=== PATIENT | female | born 1970 | race Caucasian/White ===

== ENCOUNTER 2023-04-22 23:24 | Observation (INO) | payer BC ==
[~2023-04-22] VITALS: Ht 175.3 cm; Wt 93.6 kg
[2023-04-22 23:43] LABS: BASOPHILS # (AUTO) 0.1 X10'3 (0-0.2); BASOPHILS % (AUTO) 0.5 % (0-1); EOSINOPHILS # (AUTO) 0.1 X10'3 (0-0.9); EOSINOPHILS % (AUTO) 1.3 % (0-6); HEMATOCRIT 40.7 % (35.0-45.0); HEMOGLOBIN 13.5 g/dl (12.0-16.0); LYMPHOCYTES # (AUTO) 3.7 X10'3 (1.1-4.8); LYMPHOCYTES % (AUTO) 39.6 % (21-51); MEAN CORPUSCULAR HEMOGLOBIN 28.9 PG (27.0-31.0); MEAN CORPUSCULAR HGB CONC 33.2 g/dL (33.0-36.5); MEAN PLATELET VOLUME 8.2 FL (7.4-10.4); MONOCYTES # (AUTO) 0.7 X10'3 (0-0.9); NEUTROPHILS # (AUTO) 4.8 X10'3 (1.8-7.7); NEUTROPHILS % (AUTO) 51.6 % (42-75); PLATELET COUNT 222 X10'3 (140-440); RED BLOOD COUNT 4.68 X10'6 (4.20-5.60); RED CELL DISTRIBUTION WIDTH 13.7 % (11.5-14.5); WHITE BLOOD COUNT 9.4 X10'3 (4.5-11.0)
[2023-04-23] VITALS (11 sets, daily range): BP systolic 136–164; BP diastolic 68–91; PULSE 64–101; RESP 12–16; TEMP 97.9; O2SAT 98–100
[2023-04-23 00:02] LABS: ALANINE AMINOTRANSFERASE 32 U/L (12-78); ALBUMIN 3.9 G/DL (3.4-5.0); ALBUMIN/GLOBULIN RATIO 0.9 (1.1-1.5); ALKALINE PHOSPHATASE 54 IU/L (46-116); ANION GAP 9 (8-16); ASPARTATE AMINO TRANSFERASE 20 U/L (10-37); BILIRUBIN,TOTAL 0.5 MG/DL (0.1-1.0); BLOOD UREA NITROGEN 10 MG/DL (7-18); CALCIUM 9.7 MG/DL (8.5-10.1); CHLORIDE 103 MMOL/L (99-107); CREATININE 0.83 MG/DL (0.40-0.90); GLUCOSE 132 MG/DL (70-104); POTASSIUM 3.4 MMOL/L (3.5-5.1); SODIUM 139 MMOL/L (135-145); TOTAL CARBON DIOXIDE 27.3 MMOL/L (24-32); TOTAL PROTEIN 8.1 G/DL (6.4-8.2); eCRCL 83 ML/MIN; eGFR 72 ML/MIN
[2023-04-23 00:11] LABS: PRO BRAIN NATRIURETIC PEPTIDE 60 PG/ML (0-125)
[2023-04-23] MEDS ORDERED: mag hydrox/Alum hydrox/simeth 30ml oral suspension PO PRN (04:25)
[2023-04-23] MEDS ORDERED: HYDROcodone/acetaminophen 5mg/325mg tablet PO PRN (04:25)
[2023-04-23] MEDS ORDERED: morphine 2 MG/ML inj. syringe IV PRN (04:25)
[2023-04-23] MEDS ORDERED: acetaminophen 325mg tablet PO PRN ×2 (04:25)
[2023-04-23] MEDS ORDERED: diphenhydrAMINE 50 mg/ml inj IV PRN (04:25)
[2023-04-23] MEDS ORDERED: acetaminophen 650mg rectal suppository RC PRN (04:25)
[2023-04-23] MEDS ORDERED: metoclopramide 5 mg/ml inj IV PRN (04:25)
[2023-04-23] MEDS ORDERED: ondansetron 4mg rapidly disintigrating tab PO PRN (04:25)
[2023-04-23] MEDS ORDERED: diphenhydrAMINE 25mg capsule PO PRN (04:25)
[2023-04-23] MEDS ORDERED: potassium Cl 20 mEq SR tablet PO PRN ×2 (04:25)
[2023-04-23] MEDS ORDERED: magnesium hydroxide 30ml (MOM) UD suspension PO PRN (04:25)
[2023-04-23] MEDS ORDERED: bisacodyl 10mg suppository rectal RC PRN (04:25)
[2023-04-23] MEDS ORDERED: potassium Cl 40MEQ/1/2NS 520ml 520 ML IV PRN (04:25)
[2023-04-23] MEDS ORDERED: ondansetron/PF 4mg/2ml inj IV PRN (04:25)
[2023-04-23] MEDS ORDERED: potassium Cl 20mEq in NS 1,000 ML IV SCH (04:25)
[2023-04-23] MEDS ORDERED: HYDROcodone/acetaminophen 10/325mg tab PO PRN (04:25)
[2023-04-23] MEDS ORDERED: aminophylline 250mg/10ml inj. IV PRN (04:30)
[2023-04-23] MEDS ORDERED: metoprolol tartrate 1mg/ml inj IV PRN (04:30)
[2023-04-23] MEDS ORDERED: regadenoson 0.4mg/5ml syringe IV PRN (04:30)
[2023-04-23] MEDS ORDERED: nitroGLYCERIN 0.4mg SUBLingual tab SL PRN (04:30)
[2023-04-23 06:14] LABS: BILIRUBIN,URINE NEGATIVE (Neg); CLARITY,URINE SLIGHTLY CLOUDY (Clear); COLOR,URINE YELLOW (Yellow); GLUCOSE, URINE NEGATIVE (Neg); KETONES,URINE NEGATIVE (Neg); LEUKOCYTE ESTERASE ,URINE TRACE (Neg); NITRITES, URINE NEGATIVE (Neg); OCCULT BLOOD,URINE NEGATIVE (Neg); PROTEIN,URINE NEGATIVE (Neg); UROBILINOGEN,URINE 0.2 E.U/dL (0.2-1.0)
[2023-04-23 06:43] LABS: UA COLLECTION TYPE CLN CATCH MIDSTREAM
[2023-04-23 06:44] LABS: RBC,URINE NONE SEEN /HPF (0-2)
[2023-04-23 06:45] LABS: AMORPHOUS PHOSPHATES 1+; BACTERIA,URINE 1+ /HPF (Neg); MUCUS STRANDS NONE SEEN /LPF (Neg); SQUAMOUS EPITHELIAL CELL,UR FEW /LPF (FEW)
[2023-04-23] MEDS ORDERED: pantoprazole 40mg Tablet.DR PO SCH (07:30)
[2023-04-23] MEDS ORDERED: atorvastatin 20mg tablet PO SCH (08:00)
[2023-04-23] MEDS ORDERED: docusate sod 100mg capsule PO SCH (08:00)
[2023-04-23] MEDS ORDERED: heparin, porcine 5000 units/ml vial SQ SCH (08:00)
[2023-04-23] MEDS ORDERED: carVEDilol 3.125mg tablet PO SCH (08:00)
[2023-04-23] MEDS ORDERED: lisinopril 5mg tablet PO SCH (08:00)
[2023-04-23] MEDS ORDERED: aspirin 81mg, enteric-coated 1 TAB TABLET.DR PO SCH (08:00)
[2023-04-23] MEDS ORDERED: nitroGLYCERIN 0.1mg/hour patch TD SCH (08:00)
[2023-04-23] MEDS ORDERED: IOHEXOL 12MG/ML oral solution 500 ML BOTTLE PO ONE (08:30)
[2023-04-23 08:39] LABS: HEMOGLOBIN A1C 5.6 % (4.5-6.2)
[2023-04-23 08:52] LABS: MAGNESIUM 2.1 MG/DL (1.5-2.4); POTASSIUM 3.7 MMOL/L (3.5-5.1); THYROID STIMULATING HORMONE 3.96 ulU/ml (0.34-4.50)
[2023-04-23 09:08] LABS: APTT 25 SECONDS (22-32); PROTHROMBIN TIME 10.5 SECONDS (9.0-12.0)
[2023-04-23 09:12] LABS: D-DIMER < 0.19 MG/L FEU (0-0.50)
[2023-04-23] MEDS ORDERED: ASPI-1071 PO (11:08)
[2023-04-23] MEDS ORDERED: LISI5TAB22 PO (11:08)
[2023-04-23] MEDS ORDERED: ATOR20TA66 PO (11:08)
[2023-04-23] MEDS ORDERED: METO-395 PO (11:09)
== END 2023-04-23 13:50 | disposition home or self-care (01) ==
LOC: ER 23:25 → INTOOBSV 04-23 04:28 → ED HOLD 04-23 04:28 → PCU 3S 04-23 10:35
PROVIDERS: ADMIT Family Medicine; ATTEND Internal Medicine
DX: R07.89 Other chest pain (principal); E78.5 Hyperlipidemia, unspecified; E87.6 Hypokalemia; I10 Essential (primary) hypertension; G89.4 Chronic pain syndrome; M54.50 Low back pain, unspecified; E78.00 Pure hypercholesterolemia, unspecified; I25.10 Atherosclerotic heart disease of native coronary artery without angina pectoris; E66.9 Obesity, unspecified; J45.909 Unspecified asthma, uncomplicated; K64.9 Unspecified hemorrhoids; Z79.82 Long term (current) use of aspirin; Z98.84 Bariatric surgery status; Z79.899 Other long term (current) drug therapy
CPT/HCPCS: 36415; 71045; 78452; 80053; 81001; 83036; 83690; 83735; 83880; 84100; 84132; 84443; 84484; 85025; 85379; 85610; 85730; 87088; 93005; 93017; 96365; 96366; 96372; 99285; A9500; G0378; J1644; J2785; J3480